=== PATIENT | male | born 1950 | race Caucasian/White ===

== ENCOUNTER 2024-03-15 15:24 | Emergency (ER) | payer MEDICARE, SELFPAY ==
[2024-03-15 15:26] VITALS: BP 157/88
[2024-03-15 16:20] VITALS: BMI 41.0
[2024-03-15 16:32] LABS: % Basophils 0.4 % (0-2); % Eosinophils 3.5 % (0-6); % Immature Granulocytes 0.4 % (0-0.5); % Lymphocytes 16.6 % (20.5-51.1); % Monocytes 7.3 % (1.7-9.3); % Neutrophils 71.8 % (42.2-75.2); Absolute Eosinophils 0.3 10^3/uL (0-0.7); Absolute Lymphocytes 1.5 10^3/uL (1.2-3.4); Absolute Monocytes 0.7 10^3/uL (0.1-0.6); Absolute Neutrophils 6.4 10^3/uL (1.4-6.5); Hematocrit 36.8 % (39.0-52.0); Hemoglobin 13.1 g/dL (13.0-18.0); Mean Corp Hgb Conc. 35.6 g/dL (33.0-37.0); Mean Corpuscular Hgb 31.9 pg (27.0-31.0); Mean Corpuscular Volume 89.5 fL (80.0-94.0); Mean Platelet Volume 9.4 fL (7.4-10.4); Nucleated Red Blood Cells % 0 % (-); Platelet Count 160 10^3/uL (130-400); Red Blood Cell Count 4.11 10^6/uL (4.70-6.10); Red Cell Dist. Width 13.3 % (11.5-14.5); White Blood Cell Count 8.9 10^3/uL (4.8-10.8)
[2024-03-15 17:12] LABS: ALT (SGPT) 40 U/L (0-50); AST (SGOT) 40 U/L (17-59); Albumin 4.3 g/dl (3.5-5.0); Alkaline Phosphatase 46 U/L (38-126); Blood Urea Nitrogen 16 mg/dl (9-20); Calcium 10.4 mg/dl (8.4-10.2); Carbon Dioxide 21 mmol/L (22-30); Chloride 105 mmol/L (98-107); Estimated Creatinine Clearance 122 ml/min; Glucose 102 mg/dl (70-99); Potassium 4.2 mmol/L (3.5-5.1); Sodium 135 mmol/L (135-145); Total Bilirubin 0.6 mg/dl (0.2-1.3); Total Protein 6.4 g/dl (6.3-8.2); eGFR > 60.00
--- NOTE | 2024-03-15 19:10 | ED.GENMED ---
History of Present Illness
General
Chief Complaint: Skin Problem
Source: patient
Exam Limitations: none
Time Seen by Provider: 03/15/24 16:12
Nursing documentation reviewed up to this point in time: agreed with
Travel History
Have you had any contact with someone who has COVID-19?: No
Do you have any symptoms of coronavirus? Fever > 100 degrees, chills, cough, shortness of breath, sore throat, loss of taste or smell, muscle aches, or headache?: No
History of Present Illness
History of Present Illness:
73-year-old male with past medical history of hypertension hyperlipidemia presenting to the emergency department today with concerns of right lower leg swelling discomfort of the past day or so. Denies any specific inciting events no recent trauma
surgery immobilization. Has been having some back pain and also had a injection as well recently.
Past History
Past History
ED Past Medical History: Hypercholesterolemia and Other (That his esophagus)
Social History
Tobacco: Non-smoker
Alcohol: Occasional
Review of Systems
Review of Systems
Allergies reviewed?: Yes
All Other Systems: ROS reviewed and negative except as documented in HPI and ROS
Phy Exam
Physical Exam
Physical Exam:
GENERAL: Alert , in no apparent distress
EYE: pupils equal and reactive
NECK: Supple, no significant adenopathy.
ENT: o/p clr, mmm.
CARDIAC: Regular rate and rhythm .
LUNGS: Clear breath sounds bilaterally, no acute respiratory distress, no wheezes/rales/rhonchi
ABDOMEN: Soft, without focal tenderness, no r/g, no cvat
NEUROLOGICAL: Alert and oriented, no focal neuro deficits
SKIN: Warm and dry, skin intact.
MUSCULOSKELETAL: Swelling edema to the right leg some redness and some mild swelling vaguely to the right distal wyatt and into the foot and ankle. Mildly warm no breaks in the skin., well perfused.
PSYCH: Normal and appropriate interaction.
Course
Orders/Labs/Results
Orders:
Orders
03/15/24 16:27
Complete Blood Count/With Diff Urgent
Comprehensive Metabolic Panel Urgent
03/15/24 16:34
Venous Doppler Lwr Ext Rt [US Periph Venous LOWER Ext RT] Urgent
Comment:
Reason For Exam: leg swelling
03/15/24 19:06
Apixaban [Eliquis] 10 mg PO ONCE ONE
Abnormal Lab Results
03/15/24
16:27
RBC 4.11 L 10^6/uL
(4.70-6.10)
Hct 36.8 L %
(39.0-52.0)
MCH 31.9 H pg
(27.0-31.0)
Absolute Monos (auto) 0.7 H 10^3/uL
(0.1-0.6)
Lymphocytes % 16.6 L %
(20.5-51.1)
Carbon Dioxide 21 L mmol/L
(22-30)
Glucose 102 H mg/dl
(70-99)
Calcium 10.4 H mg/dl
(8.4-10.2)
03/15/24 16:27
03/15/24 16:27
Vital Signs
Initial and Last Documented VS:
Initial Vital Signs
Temp Pulse Resp BP Pulse Ox
98.4 F 89 18 157/88 98
03/15/24 15:26 03/15/24 15:26 03/15/24 15:26 03/15/24 15:26 03/15/24 15:26
Last Documented Vital Signs
Temp Pulse Resp BP Pulse Ox
98.4 F 89 18 157/88 98
03/15/24 15:26 03/15/24 15:26 03/15/24 15:26 03/15/24 15:26 03/15/24 15:26
MDM/Problems Addressed
MDM/Problems Addressed:
73-year-old male presenting to the emergency department today with concerns of swelling to his right leg no specific inciting event. No chest pain shortness of breath no history of blood clots. Here vital signs are normal labs unremarkable
ultrasound performed that showed a saphenous vein thrombosis likely causing patient's symptoms. Due to the moderate symptoms patient be started on Eliquis and advised for close outpatient follow-up. Return precautions given.
*Critical Care Note
Total Time (30-74mins, 75-104mins- exclusive of procedures): Not Applicable
ED Attending Note
-
Portions of this chart may have been created with voice recognition software.� Occasional wrong word or��sound alike� substitutions may have occurred due to the inherent limitations of voice recognition software.
Discharge Plan
Departure
Patient Disposition: Home (Routine Discharge)
Date of Disposition: 03/15/24
Time of Disposition: 19:11
Patient with high blood pressure during this ER visit?: No
Condition: Good
Covid-19: Not Applicable
Discharge Problem:
Thrombosis of right saphenous vein
Instructions: Deep vein thrombosis (blood clot in the legs), Apixaban
Prescriptions:
New
Eliquis DVT-PE Treat 30D Start 5 mg (74 tabs) tablets,dose pack
See Rx Instructions .ROUTE .COMPLEX Qty: 74 0RF
Rx Instructions:
orally per package directions
No Action
ascorbic acid (vitamin C) [Vitamin C] 1,000 mg Tablet
1,000 mg PO DAILY
diltiazem HCl 180 mg capsule,extended release 24hr
180 mg PO DAILY
valsartan 80 mg Tablet
80 mg PO HS
omeprazole 40 mg Capsule,Delayed Release(Dr/Ec)
40 mg PO DAILY
alprazolam 0.25 mg Tablet
0.25 mg PO DAILY PRN (Reason: anxiety)
zinc 25 mg Tablet
50 mg PO DAILY
ibuprofen 200 mg Tablet
400 mg PO BIDPRN PRN (Reason: mild pain)
zolpidem 10 mg Tablet
10 mg PO HS
escitalopram oxalate 10 mg Tablet
10 mg PO DAILY
Patient Comments:
03/15/2024, [facility] records from 11/28/2023.
coenzyme Q10 [CoQ-10] 100 mg Capsule
100 mg PO DAILY
rosuvastatin 40 mg Tablet
40 mg PO DAILY
cholecalciferol (vitamin D3) 125 mcg (5,000 unit) Tablet
125 mcg PO DAILY
Artificial Tears (PF) 0.1-0.3 % Dropperette
1 drp BOTH EYES TIDPRN PRN (Reason: dry eyes)
magnesium oxide 300 mg magnesium Tablet
300 mg PO DAILY
Referrals:
Da Fong DO [Family Provider] -
Activity Restrictions/Additional Instructions:
You came to the emergency department today with concerns of leg swelling. You are found to have a blood clot in your distal leg. You were started on an anticoagulant. Please take this as prescribed and follow close with the primary care doctor
for further monitoring and evaluation. Return to the emergency department for any worsening, new or concerning symptoms.
Interventions
Interventions:
*Risk Screen - Suicide Last Done: 03/15/24 15:26
*General Assessment Last Done: 03/15/24 15:26
*Neglect/Abuse Screening Last Done: 03/15/24 15:26
ED- Fall Risk Assessment Last Done: 03/15/24 16:20
*ED COVID-19 Vaccine History Last Done: 03/15/24 15:26
ED-Skin Assessment Last Done: 03/15/24 16:20
Discharge Date and Time
Print Language: [id number]
[2024-03-15] MEDS: ELIQUIS 10 MG PO (19:20)
[2024-03-15 19:31] VITALS: BP 151/85
== END 2024-03-15 19:32 | disposition home or self-care (01) ==
LOC: EMR 15:24
PROVIDERS: Physician Assistant; EMERGENCY PHYSICIAN Emergency Medicine; FAMILY PHYSICIAN Internal Medicine
DX: I82.811 Embolism and thrombosis of superficial veins of right lower extremity (principal); I10 Essential (primary) hypertension; E78.00 Pure hypercholesterolemia, unspecified
CPT/HCPCS: 99284; 80053; 85025; 93971

== ENCOUNTER 2025-02-05 15:34 | Emergency (ER) | payer MEDICARE, SELFPAY ==
[2025-02-05 15:43] VITALS: BP 153/86
--- NOTE | 2025-02-05 16:07 | ED.GENMED ---
History of Present Illness
General
Chief Complaint: Chest Pain
Time Seen by Provider: 02/05/25 16:07
History of Present Illness
History of Present Illness:
TIME OF INITIAL ENCOUNTER: 4:15 PM
HPI: Around 1 PM today, the patient was talking on the phone and had shortness of breath and chest discomfort. He states he recently saw Dr. MARY Bui and notified them of the chest discomfort but according to the patient Dr. Bui felt it could be
GI in nature. The patient has history of Jaffe's esophagus and has not had a recent EGD. He does have an upcoming EGD. Today however he was more short of breath. However currently his shortness of breath has nearly resolved. He does have a
history of a saphenous vein thrombus nearly 1 year ago and followed up at [facility] and was diagnosed with a DVT. He was on anticoagulation for 6 months but is no longer on any anticoagulation. There was no clear reason for him to have a DVT at
that time. He also has had a chronic cough for about a year. He used to smoke but no longer smokes.
EXAM:
GENERAL: Well appearing in no distress, frequent cough noted, room air sats 99%
HEENT: Moist oral mucosa
CARDIOVASCULAR: No murmurs, normal heart rate, regular rhythm, No chest wall tenderness
PULMONARY: No respiratory distress, breath sounds are clear and equal
ABDOMEN: Soft with no peritoneal signs, no tenderness
NEUROLOGIC: Excellent strength all extremities, no coordination deficits
PSYCHIATRIC: Appropriate mental status, normal insight and judgement
EXTREMITIES: Nontender, no edema, moves all extremities equally
SKIN: No rash, no lesions
NUMBER AND COMPLEXITY OF PROBLEMS ADDRESSED AT THE ENCOUNTER
� Chronic conditions affecting care: High blood pressure, former smoker, GERD, hyperlipidemia, history of DVT not currently anticoagulated
� Acute Exacerbation and/or Progression of Chronic Illness: This is an acute problem
� Differential Diagnosis includes: Anxiety, ACS, chest wall pain, PE
AMOUNT AND/OR COMPLEXITY OF DATA TO BE REVIEWED AND ANALYZED
� I performed an independent evaluation of and my interpretation is:
EKG: Sinus 86, left axis deviation, nonspecific ST abnormality, no significant change from 10/02/2013
CT: CT chest shows some mild atherosclerotic plaque in the coronaries, no PE
X-rays:
Laboratory Studies: CBC unremarkable, chemistries unremarkable however calcium noted to be 10.8, troponin less than 0.012
Other:
� Review of other/old records: I reviewed records, in February 2024, the patient was diagnosed with a thrombus in the right saphenous vein
� Clinical information was obtained by an independent historian: None needed, but I did speak to at bedside
� Prescriptions/Medications Considered but not given:
� Further testing considered but not performed:
RISK OF COMPLICATIONS AND/OR MORBIDITY OR MORTALITY OF PATIENT MANAGEMENT
� Social determinants of health affecting care: Lives at home
� Discussion with other providers:
� Escalation of care including admission/observation vs risk of discharge considered: The patient is well-appearing with an unchanged EKG. Will check a second troponin. He has had a DVT in the past now with shortness of breath
in addition to the chest pain that he has had in the past. CTA has been ordered.
ANY OTHER UPDATES:
7 PM: The patient reports having episodes of burping a lot and feeling of indigestion. Strong suspect GI etiology. CTA shows no PE but does show some mild atherosclerosis of the coronaries therefore I recommended he also follows up with Dr. Bui
again. He does question a component of anxiety and does have Xanax at home that he rarely uses. On reassessment, he is eager to go home and appears very comfortable.
Past History
Past History
ED Past Medical History: Hypercholesterolemia and Other (That his esophagus)
Social History
Tobacco: Non-smoker
Alcohol: Occasional
Phy Exam
Physical Exam
Physical Exam:
See HPI
Scores
Heart Score for Chest Pain Patients
STEMI patient?: Not applicable
Course
Orders/Labs/Results
Orders:
Orders
02/05/25 15:36
ECG [Electrocardiogram (*1)] Urgent
Reason for Study: Chest Pain
EKG- Treatment ONCE
02/05/25 15:49
Complete Blood Count/With Diff Urgent
Comprehensive Metabolic Panel Urgent
Prothrombin Time Urgent
02/05/25 16:20
CT Chest PE Study Urgent
Comment:
Reason For Exam: sob cp h/o dvt not on AC
02/05/25 17:17
NT-proBNP Urgent
Troponin I Urgent
Abnormal Lab Results
02/05/25
15:49
Lymphocytes % 20.1 L %
(20.5-51.1)
BUN 23 H mg/dl
(9-20)
Glucose 109 H mg/dl
(70-99)
Calcium 10.8 H mg/dl
(8.4-10.2)
02/05/25 15:49
02/05/25 15:49
Vital Signs
Initial and Last Documented VS:
Initial Vital Signs
Temp Pulse Resp BP Pulse Ox
36.9 C 88 17 153/86 98
02/05/25 15:43 02/05/25 15:43 02/05/25 15:43 02/05/25 15:43 02/05/25 15:43
Last Documented Vital Signs
Temp Pulse Resp BP Pulse Ox
36.9 C 76 15 160/85 98
02/05/25 15:43 02/05/25 16:30 02/05/25 16:30 02/05/25 16:10 02/05/25 16:30
*Critical Care Note
Total Time (30-74mins, 75-104mins- exclusive of procedures): Not Applicable
ED Attending Note
-
Portions of this chart may have been created with voice recognition software.� Occasional wrong word or��sound alike� substitutions may have occurred due to the inherent limitations of voice recognition software.
Discharge Plan
Departure
Patient Disposition: Home (Routine Discharge)
Date of Disposition: 02/05/25
Time of Disposition: 18:56
Patient with high blood pressure during this ER visit?: Yes
Discharge Problem:
Chest pain
Instructions: Chest Pain DCA Follow Up, BLOOD PRESSURE
Prescriptions:
No Action
ascorbic acid (vitamin C) [Vitamin C] 1,000 mg Tablet
1,000 mg PO DAILY
diltiazem HCl 180 mg capsule,extended release 24hr
180 mg PO DAILY
valsartan 80 mg Tablet
80 mg PO HS
omeprazole 40 mg Capsule,Delayed Release(Dr/Ec)
40 mg PO DAILY
alprazolam 0.25 mg Tablet
0.25 mg PO DAILY PRN (Reason: anxiety)
zinc 25 mg Tablet
50 mg PO DAILY
ibuprofen 200 mg Tablet
400 mg PO BIDPRN PRN (Reason: mild pain)
zolpidem 10 mg Tablet
10 mg PO HS
escitalopram oxalate 10 mg Tablet
10 mg PO DAILY
Patient Comments:
03/15/2024, [facility] records from 11/28/2023.
coenzyme Q10 [CoQ-10] 100 mg Capsule
100 mg PO DAILY
rosuvastatin 40 mg Tablet
40 mg PO DAILY
cholecalciferol (vitamin D3) 125 mcg (5,000 unit) Tablet
125 mcg PO DAILY
Artificial Tears (PF) 0.1-0.3 % Dropperette
1 drp BOTH EYES TIDPRN PRN (Reason: dry eyes)
magnesium oxide 300 mg magnesium Tablet
300 mg PO DAILY
Eliquis DVT-PE Treat 30D Start 5 mg (74 tabs) tablets,dose pack
See Rx Instructions .ROUTE .COMPLEX Qty: 74 0RF
Rx Instructions:
orally per package directions
Referrals:
Da Fong, DO [Family Provider] -
Jose Antonio Bui MD [Active] - Follow up in 2-3 days
Activity Restrictions/Additional Instructions:
The cardiac blood work is normal. EKG is also unremarkable. We did a CAT scan that shows there is no blood clot in your lung. Of note however, the radiologist noted that there is 'mild calcific atherosclerotic plaque in the coronaries'. Since
you do have recurrence of chest discomfort I think would be a good idea for you to follow-up with Dr. Bui again. The CAT scan does show 'severe diffuse idiopathic skeletal hyperostosis (DISH)'. There is no sign of heart failure. Return here if
worse or other concerns. I also recommend that you follow-up with your GI doctor as well.
Interventions
Interventions:
*Risk Screen - Suicide Last Done: 02/05/25 15:44
*General Assessment Last Done: 02/05/25 15:44
*Neglect/Abuse Screening Last Done: 02/05/25 15:44
*ED COVID-19 Vaccine History Last Done: 02/05/25 15:44
ED- Cardiac Assessment Last Done: 02/05/25 16:34
Discharge Date and Time
Print Language: [id number]
[2025-02-05 16:10] VITALS: BP 160/85
[2025-02-05 16:10] LABS: % Basophils 0.5 % (0-2); % Immature Granulocytes 0.3 % (0-0.5); % Lymphocytes 20.1 % (20.5-51.1); % Monocytes 6.9 % (1.7-9.3); % Neutrophils 70.2 % (42.2-75.2); Absolute Eosinophils 0.2 10^3/uL (0-0.7); Absolute Lymphocytes 1.5 10^3/uL (1.2-3.4); Absolute Monocytes 0.5 10^3/uL (0.1-0.6); Absolute Neutrophils 5.2 10^3/uL (1.4-6.5); Hematocrit 43.9 % (39.0-52.0); Hemoglobin 15.1 g/dL (13.0-18.0); Mean Corp Hgb Conc. 34.4 g/dL (33.0-37.0); Mean Corpuscular Hgb 30.8 pg (27.0-31.0); Mean Corpuscular Volume 89.4 fL (80.0-94.0); Mean Platelet Volume 9.8 fL (7.4-10.4); Nucleated Red Blood Cells % 0 % (-); Platelet Count 211 10^3/uL (130-400); Red Blood Cell Count 4.91 10^6/uL (4.70-6.10); White Blood Cell Count 7.4 10^3/uL (4.8-10.8)
[2025-02-05 16:20] LABS: INR 1.08; PT 14.3 Sec (11.4-14.6)
[2025-02-05 16:30] LABS: ALT (SGPT) 43 U/L (0-50); AST (SGOT) 32 U/L (17-59); Albumin 4.7 g/dl (3.5-5.0); Alkaline Phosphatase 54 U/L (38-126); Blood Urea Nitrogen 23 mg/dl (9-20); Calcium 10.8 mg/dl (8.4-10.2); Carbon Dioxide 23 mmol/L (22-30); Chloride 103 mmol/L (98-107); Glucose 109 mg/dl (70-99); Potassium 3.8 mmol/L (3.5-5.1); Sodium 136 mmol/L (135-145); Total Bilirubin 0.7 mg/dl (0.2-1.3); Total Protein 6.8 g/dl (6.3-8.2); eGFR > 60.00
[2025-02-05 17:16] VITALS: BP 131/73
[2025-02-05 17:17] VITALS: BMI 38.1
[2025-02-05 17:45] VITALS: BP 145/77
[2025-02-05 17:51] LABS: NT-proBNP 42.3 pg/ml; Troponin I < 0.012 ng/ml
[2025-02-05 18:00] VITALS: BP 145/86
[2025-02-05] MEDS: PEPCID 20 MG IV (19:15)
== END 2025-02-05 19:29 | disposition home or self-care (01) ==
LOC: EMR 15:34
PROVIDERS: EMERGENCY PHYSICIAN Emergency Medicine; FAMILY PHYSICIAN Internal Medicine
DX: R07.89 Other chest pain (principal); R06.02 Shortness of breath; R05.9 Cough, unspecified; K30 Functional dyspepsia; R03.0 Elevated blood-pressure reading, without diagnosis of hypertension; K22.70 Barrett's esophagus without dysplasia; I25.10 Atherosclerotic heart disease of native coronary artery without angina pectoris; E78.00 Pure hypercholesterolemia, unspecified; Z86.718 Personal history of other venous thrombosis and embolism; Z87.891 Personal history of nicotine dependence; Z88.1 Allergy status to other antibiotic agents; Z88.2 Allergy status to sulfonamides; Z91.048 Other nonmedicinal substance allergy status
CPT/HCPCS: 99285; 96374; 71275; 80053; 83880; 84484; 85025; 85610; 93005; Q9967

== ENCOUNTER → 2025-02-11 09:59 | Outpatient (REF) | payer MEDICARE, SELFPAY | LOC: HWRAD 09:59 | PROVIDERS: ATTENDING PHYSICIAN Internal Medicine; REFERRING PHYSICIAN Internal Medicine Cardiovascular Disease | DX: I25.10 Atherosclerotic heart disease of native coronary artery without angina pectoris (principal) | CPT/HCPCS: 75571 ==

== ENCOUNTER 2025-02-20 06:21 | Day surgery (SDC) | payer MEDICARE, SELFPAY | END 2025-02-20 12:09 | disposition home or self-care (01) | LOC: GI 06:21 | PROVIDERS: ATTENDING PHYSICIAN Internal Medicine Gastroenterology | DX: Z12.11 Encounter for screening for malignant neoplasm of colon (principal); K64.8 Other hemorrhoids; K57.30 Diverticulosis of large intestine without perforation or abscess without bleeding; R12 Heartburn; K22.70 Barrett's esophagus without dysplasia; K31.7 Polyp of stomach and duodenum; K31.89 Other diseases of stomach and duodenum; K62.1 Rectal polyp; Z80.0 Family history of malignant neoplasm of digestive organs; Z86.0100 Personal history of colon polyps, unspecified | CPT/HCPCS: 43251; 45380; 43239; 88305; 88342 ==